=== PATIENT | male | born 1990 | race Caucasian/White ===

== ENCOUNTER → 2019-12-23 17:15 | Outpatient (BNVA) | payer OTHER, SELFPAY | PROVIDERS: Visit Provider Emergency Medicine | DX: Z20.2 Contact with and (suspected) exposure to infections with a predominantly sexual mode of transmission (principal); A64 Unspecified sexually transmitted disease | CPT/HCPCS: 86592; 87491; 87591; 87661; 87806 ==

== ENCOUNTER → 2023-03-24 13:54 | Outpatient (BNVA) | payer BC, SELFPAY | PROVIDERS: Visit Provider Nurse Practitioner | DX: I10 Essential (primary) hypertension (principal); R61 Generalized hyperhidrosis; F10.20 Alcohol dependence, uncomplicated; N39.0 Urinary tract infection, site not specified; Z79.899 Other long term (current) drug therapy | CPT/HCPCS: 80053; 81000; 82150; 83690; 84443; 85025; 87086 ==

== ENCOUNTER 2023-04-15 14:23 | Outpatient (CLI) | payer BC, SELFPAY ==
--- NOTE | 2023-04-15 14:45 | US_ITS ---
WS: [id number] Complete ABDOMINAL ULTRASOUND HISTORY: elevated liver enzymes COMPARISON: None available. Liver: 19.0 cm in length. Moderately enlarged liver. Coarse diffuse echotexture for hepatic steatosis . No mass. No bile duct dilatation. Portal Vein: Normal hepatopetal flow with monophasic waveform. Gallbladder: Normally distended gallbladder with no stones or wall thickening. CBD: 0.4 cm Pancreas: Normal size and echogenicity. Right kidney: 10.7 cm x 4.8 x 3.7 cm. Cortex: 1.3 cm. Normal size and echogenicity. No hydronephrosis or mass. Left kidney: 11.0 cm x 5.3 cm x 5.1 cm. Cortex: 1.2 cm. Normal size and echogenicity. No hydronephrosis or mass. Spleen: Normal size. 11.2 cm in length. Aorta and IVC: Unremarkable abdominal aorta and IVC. Impression: 1. Normal gallbladder. 2. Moderate hepatic steatosis and hepatomegaly. 3. No renal obstruction.
== END 2023-04-15 14:24 | disposition home or self-care (01) ==
PROVIDERS: PCP Nurse Practitioner; Visit Provider Nurse Practitioner
DX: K52.9 Noninfective gastroenteritis and colitis, unspecified (principal); R11.2 Nausea with vomiting, unspecified; R74.8 Abnormal levels of other serum enzymes; K76.0 Fatty (change of) liver, not elsewhere classified; R16.0 Hepatomegaly, not elsewhere classified
CPT/HCPCS: 76700

== ENCOUNTER → 2023-08-19 10:44 | Outpatient (BNVA) | payer BC, SELFPAY | PROVIDERS: PCP Nurse Practitioner; Visit Provider Nurse Practitioner | DX: B19.20 Unspecified viral hepatitis C without hepatic coma (principal); I10 Essential (primary) hypertension; F10.20 Alcohol dependence, uncomplicated | CPT/HCPCS: 80053; 85025; 85610; 86705; 86706; 86709; 86803; 87340; 87522; 87902 ==

== ENCOUNTER → 2023-08-20 19:44 | Outpatient (BNVA) | payer BC, SELFPAY | PROVIDERS: PCP Nurse Practitioner; Visit Provider Nurse Practitioner | DX: B19.20 Unspecified viral hepatitis C without hepatic coma (principal); I10 Essential (primary) hypertension; F10.20 Alcohol dependence, uncomplicated | CPT/HCPCS: 87522 ==

== ENCOUNTER → 2023-12-01 13:44 | Outpatient (BNVA) | payer SELFPAY | PROVIDERS: PCP Nurse Practitioner; Visit Provider Nurse Practitioner | DX: K52.9 Noninfective gastroenteritis and colitis, unspecified (principal); B19.20 Unspecified viral hepatitis C without hepatic coma | CPT/HCPCS: 80053 ==

== ENCOUNTER → 2024-08-10 11:46 | Outpatient (BNVA) | payer OTHER, SELFPAY | PROVIDERS: PCP Nurse Practitioner; Visit Provider Psychiatry & Neurology Neurology | DX: F10.20 Alcohol dependence, uncomplicated (principal); F41.1 Generalized anxiety disorder; F33.1 Major depressive disorder, recurrent, moderate | CPT/HCPCS: 80061; 83036; 85025 ==